=== PATIENT | female | born 1980 | race Caucasian/White ===

== ENCOUNTER 2016-11-06 09:53 | Emergency (ER) | payer OTHER ==
--- NOTE | ~2016-11-06 | EKG ---
PATIENT: BERNADETTE GOODMAN UNIT #: [id number] Ventricular Rate: 106 BPM Atrial Rate: 106 BPM P-R Interval: 142 ms QRS Duration: 96 ms Q-T Interval: 364 ms QTC Calculation(Bezet): 483 ms P [place]: 62 degrees Calculated R [place]: 28 degrees Calculated T [place]: 33 degrees Diagnosis Line: Sinus tachycardia Diagnosis Line: Otherwise normal ECG Diagnosis Line: No previous ECGs available Diagnosis Line: Confirmed by ABDULKADIR HI MD ([id number]) on Diagnosis Line: 11/07/2016 2:21:47 PM INTERPRETING MD: KOLTON ANDERSON
--- NOTE | ~2016-11-06 | EKG ---
PATIENT: BERNADETTE GOODMAN UNIT #: [id number] Ventricular Rate: 139 BPM Atrial Rate: 139 BPM P-R Interval: 126 ms QRS Duration: 80 ms Q-T Interval: 290 ms QTC Calculation(Bezet): 441 ms P [place]: 68 degrees Calculated R [place]: 41 degrees Calculated T [place]: 39 degrees Diagnosis Line: Sinus tachycardia Diagnosis Line: Nonspecific ST abnormality Diagnosis Line: Abnormal ECG Diagnosis Line: When compared with ECG of 06-NOV-2016 09:07, Diagnosis Line: (unconfirmed) Diagnosis Line: No significant change was found Diagnosis Line: Confirmed by ABDULKADIR HI MD ([id number]) on Diagnosis Line: 11/07/2016 2:22:52 PM INTERPRETING MD: KOLTON ANDERSON
--- NOTE | ~2016-11-06 | CR72 ---
[facility] A Service of [facility] RADIOLOGY TEXT RESULTS PATIENT: BERNADETTE GOODMAN LOCATION: [facility] : 84 UNIT #: [id number] AGE: [address]: Brad Thomson DO SEX: F ORDER DR: [id number] [facility] [address] [place], [place] [address] [id number] MR#: [id number] Acc #: [id number] NAME: BERNADETTE GOODMAN : 1980 SEX: F STUDY DATE/TIME: 11/06/2016 10:01 UNIT: [facility] ROOM: STUDY DESCRIPTION: CR Chest Single View Portable Attending Physician: Brad Thomson D.O. Ordering Physician: Caron Serna Pa-C Primary Care Physician: Ba Paul M.D. MEDICAL IMAGING REPORT This report is preliminary unless electronic signature is present EXAM Chest portable 11/06/2016 1001 hours HISTORY 36-year-old woman with shortness of air, chest pain, burning in chest, arms and legs this morning. COMPARISON None. FINDINGS Portable upright chest demonstrates normal cardiac, mediastinal and hilar contours. The lungs are well expanded and clear. There is no pleural effusion or acute bone lesion. IMPRESSION Normal upright portable chest. Dictated by... Kaylin Colon M.D. THIS IS AN ELECTRONICALLY VERIFIED REPORT Kaylin Colon M.D. at 11/06/2016 2:27 PM GARLAND/agustin TD: 11/06/2016 13:59 JOB #: [id number] MEDICAL IMAGING REPORT COPY
[~2016-11-06 09:53] MED LIST: FLEXERIL PO; LORTAB 5/500 TA1 TA1 PO; METHYLDOPA500 MG PO; MULTI VITAMIN1 EACH PO; NEXIUM PO; NO MEDICATIONS; ORTHO TRI-7 DAYS X PO; PRENATAL1 TA1 PO; PROZAC10 MG PO; SEASONALE1 BLIST PA PO; ULTRAM PO; VICODIN PO
[2016-11-06 10:30] LABS: POC - CKMB <1.0 ng/mL (0.0-7.9); POC - TROPONIN <0.05 ng/mL (<=0.05)
[2016-11-06 10:51] LABS: BASOPHIL% 0.3 % (0-2.5); EOSINOPHIL% 0.5 % (0.0-7.0); HEMATOCRIT 45.1 % (35.0-45.0); HEMOGLOBIN 14.7 gm/dL (12.0-16.0); LYMPHOCYTE# 0.8 X10e3 (1.0-3.5); LYMPHOCYTE% 8.4 % (17.0-45.0); MEAN CELL VOLUME 84.7 FL (83-96); MEAN CORPUSCULAR HEMOGLOBIN 27.5 PG (28-34); MEAN CORPUSCULAR HGB CONC 32.5 g/dL (30-36); MEAN PLATELET VOLUME 7.9 FL (6.5-11.5); MONOCYTE# 0.3 X10e3 (0-1.0); MONOCYTE% 3.1 % (3.0-12.0); NEUTROPHIL# 8.2 X10e3 (1.5-7.1); NEUTROPHIL% 87.7 % (40-75); PLATELET COUNT 228 X10e3 (140-420); RED BLOOD COUNT 5.32 X10e (3.90-5.30); RED CELL DISTRIBUTION WIDTH 13.9 % (11.0-15.5); WHITE BLOOD COUNT 9.4 X10e3 (4.0-10.5)
[2016-11-06 10:55] LABS: DIFF IND NO
[2016-11-06 11:02] LABS: PARTIAL THROMBOPLASTIN TIME 25.7 SECONDS (23.5-31.3); PROTHROMBIN TIME (PATIENT) 10.4 SECONDS (9.6-11.5)
[2016-11-06 11:16] LABS: ALBUMIN SERUM 3.9 g/dL (3.5-5.0); ALKALINE PHOSPHATASE 70 U/L (32-92); ALT (SGPT) 39 U/L (10-40); AST (SGOT) 34 U/L (10-42); BILIRUBIN, DIRECT 0.1 mg/dL (0.0-0.2); BILIRUBIN,INDIRECT 0.6 mg/dL (0.0-0.9); BILIRUBIN,TOTAL 0.7 mg/dL (0.2-2.0); BLOOD UREA NITROGEN 9 mg/dL (9-23); CALCIUM SERUM 8.9 mg/dL (8.4-10.2); CARBON DIOXIDE 24 mmol/L (22-31); CHLORIDE 108 mmol/L (100-111); CREATININE SERUM 0.9 mg/dL (0.6-1.4); GLOM FILT RATE Estimated ABOVE60 mL/min (>60); GLUCOSE FASTING 120 mg/dL (70-110); PROTEIN TOTAL SERUM 6.9 g/dL (6.0-8.3); SODIUM 140 mmol/L (135-145)
[2016-11-06 14:24] LABS: POC - CKMB <1.0 ng/mL (0.0-7.9); POC - TROPONIN <0.05 ng/mL (<=0.05)
== END 2016-11-06 17:10 ==
LOC: CED 09:53
PROVIDERS: Emergency Medicine; Physician Assistant Medical
DX: R07.2 Precordial pain (principal); R55 Syncope and collapse; Z90.49 Acquired absence of other specified parts of digestive tract; Z88.1 Allergy status to other antibiotic agents; Z88.8 Allergy status to other drugs, medicaments and biological substances; Z79.899 Other long term (current) drug therapy; Z87.891 Personal history of nicotine dependence
CPT/HCPCS: 36415; 71010; 80048; 80076; 82553; 84484; 85025; 85379; 85610; 85730; 93005; 96360; 99285